=== PATIENT | female | born 1995 | race Caucasian/White ===

== ENCOUNTER 2021-10-12 17:30 | Emergency (ER) | payer BC ==
--- NOTE | 2021-10-12 19:26 | ED ---
General Adult HPI - General Stated complaint: Covid +, , wants BAM - History of Present Illness Initial comments: Ronda is a 26yo F who tested positive for COVID-19 today and is concerned because she is currently 6mo so wanted treatment with monoclonal antibodies. Patient has had a non-productive cough, sore throat, fatigue and rhinorrhea which prompted her to test. She is not having any chest pain or SOB. - Related Data Allergies Allergy/AdvReac Type Severity Reaction Status Date / Time acetaminophen [From [place]] Allergy Unknown Verified 10/12/21 19:23 hydrocodone [From [place]] Allergy Unknown Verified 10/12/21 19:23 Penicillins Allergy Rash/Hives Verified 10/12/21 19:23 Review of Systems ROS Statement: Those systems with pertinent positive or pertinent negative responses have been documented in the HPI. ROS Other: All systems not noted in ROS Statement are negative. General Exam - General Exam Comments Initial Comments: Physical Exam GENERAL: Patient is well-developed and well-nourished. Patient is nontoxic and well-hydrated and is in no distress. HENT: Normocephalic, Atraumatic. EYES: PERRL, EOMI PULMONARY: Unlabored respirations. CARDIOVASCULAR: RRR Warm and well perfused extremities ABDOMEN: Gravid abdomen Bedside US with active fetus SKIN: No rashes or bruising : Deferred NEUROLOGIC: Alert and oriented Normal speech Normal gait MUSCULOSKELETAL: Moving all extremities with no apparent injury PSYCHIATRIC: No SI/HI Course Vital Signs 10/12/21 19:23 Temperature 98.2 F Pulse Rate 120 H Respiratory 18 Rate Blood Pressure 120/79 O2 Sat by Pulse 100 Oximetry Medical Decision Making - Medical Decision Making Patient was seen and evaluated history is obtained from patient, 26-year-old, currently 24 weeks COVID positive minimally symptomatically and labs and imaging not indicated at this time, patient does meet criteria for treatment with monoclonal antibodies does consent to treatment. IV access was obtained patient was given IV monoclonal antibodies, no reaction was noted patient was discharged home in stable condition. Disposition Clinical Impression: COVID-19 Disposition: HOME SELF-CARE Condition: Stable Instructions (If sedation given, give patient instructions): Coronavirus Disease 2019 (COVID-19) Is patient prescribed a controlled substance at d/c from ED?: No Referrals: None,Stated [REFERRING] - 1-2 days
[2021-10-12 19:27] VITALS: TEMP 98.2
[2021-10-12] MEDS ORDERED: BAMLANIVIMAB (EUA) 700 MG, ETESEVIMAB (EUA) 1,400 MG in SODIUM CHLORIDE 0.9% 50 ML IVPB ONE (20:00)
[2021-10-12] MEDS ORDERED: SODIUM CHLORIDE 0.9% 50 ML IVPB ONE (20:30)
[2021-10-12 21:44] VITALS: BP 124/84; PULSE 105; RESP 20
== END 2021-10-12 21:44 | disposition home or self-care (01) ==
LOC: EC 17:30
DX: O98.512 Other viral diseases complicating pregnancy, second trimester (principal); U07.1 COVID-19; Z3A.24 24 weeks gestation of pregnancy
CPT/HCPCS: 99283; 96365; J3490